=== PATIENT | female | born 1955 | race Caucasian/White ===

== ENCOUNTER 2017-10-01 06:11 | Emergency (ER) | payer BC ==
[~2017-10-01] VITALS: Ht 167.6 cm; Wt 104.8 kg
[~2017-10-01 06:11] MED LIST: AMOXICILLIN875 MG PO; BENADRYL ALLERG25 MG PO; CELEXA10 MG; CELEXA10 MG PO; CHERATUSSIN AC118 ML PO; CIPRO500 MG PO; LEVOTHROID137 MCG PO; LORTAB 10-5001 EACH PO; NORVASC5 MG PO
--- NOTE | 2017-10-01 08:09 | Diagnostic Imaging Report ---
PROCEDURE:X-RAY RIGHT KNEE, THREE OR MORE VIEWS COMPARISON:None. INDICATIONS:RIGHT KNEE PAIN S/P FALL FINDINGS: The bones are well-mineralized. There are no fractures, subluxations, lytic or blastic lesions. Mild degenerative spurring of the superior aspect of the patella and the medial distal femur. Calcific body noted posteriorly likely a fabella or synovial osteochondroma. There is no evidence of a joint effusion. CONCLUSION: No acute bony abnormality. Joshua Quesada D.O. Dictated by: Joshua Quesada D.O. on 10/01/2017 at 8:09 Electronically approved by: Joshua Quesada D.O. on 10/01/2017 at 8:09
[2017-10-01] MEDS ORDERED: HYDROCODONE/APAP 10MG-325MG TAB PO ONE (08:30)
[2017-10-01 09:09] VITALS: BP 126/107
== END 2017-10-01 09:30 | disposition home or self-care (01) ==
LOC: ER 06:11
DX: S83.411A Sprain of medial collateral ligament of right knee, initial encounter (principal); Y93.89 Activity, other specified; Y92.002 Bathroom of unspecified non-institutional (private) residence as the place of occurrence of the external cause; I10 Essential (primary) hypertension; E03.9 Hypothyroidism, unspecified
CPT/HCPCS: 99283

== ENCOUNTER 2018-10-26 19:24 | Emergency (ER) | payer BC ==
[~2018-10-26] VITALS: Ht 167.6 cm; Wt 96.6 kg
--- OUTSIDE RECORDS SUMMARY | 2018-10-26 19:28 | XMS REPORT ---
Author Author [facility] Address Unknown Phone Unavailable Care Team Providers Care Non Destructive Evaluation Technician Name Role Phone Jaspreet OLIVARES Unavailable Unavailable Problems This patient has no known problems. Allergies, Adverse Reactions, Alerts This patient has no known allergies or adverse reactions. Medications This patient has no known medications. Results Test Description Test Time Test Comments Text Results Atomic Results Result Comments KNEE RIGHT THREE VIEWS [place] [id number] [place] [id number] Patient Name: DALE LAWRENCE MR #: [id number] : 1955 Age/Sex: 62/F Req #: [id number] Adm Physician: Ordered by: WESLEY OLIVARES MD Report #: [id number] Location: ER Room/Bed: Procedure: [id number] DX/KNEE RIGHT THREE VIEWS Exam Date: 10/01/17 Exam Time: 0649 REPORT STATUS: Signed PROCEDURE: X-RAY RIGHT KNEE, THREE OR MORE VIEWS COMPARISON: None. INDICATIONS: RIGHT KNEE PAIN S/P FALL FINDINGS: The bones are well-mineralized. There are no fractures, subluxations, lytic or blastic lesions. Mild degenerative spurring of the superior aspect of the patella and the medial distal femur. Calcific body noted posteriorly likely a fabella or synovial osteochondroma. There is no evidence of a joint effusion. CONCLUSION: No acute bony abnormality. Angie Hall D.O. Dictated by: Angie Hall D.O. on 10/01/2017 at 8:09 Electronically approved by: Angie Hall D.O. on 10/01/2017 at 8:09 Dictated By: ANGIE HALL DO 8 Transcribed By: MARIA LUISA on 10/01/17808 COPY TO: WESLEY OLIVARES MD
[2018-10-26 21:09] LABS: BASOPHILS % 0.1 % (0.0-1.0); HEMATOCRIT 32.1 % (34.2-44.1); HEMOGLOBIN 11.1 g/dL (12.0-16.0); LYMPHOCYTES # (AUTO) 2.7 (1.0-3.2); LYMPHOCYTES % 36.5 % (18.0-39.1); MEAN CORPUSCULAR HEMOGLOBIN 29.2 pg (28-32); MEAN CORPUSCULAR HGB CONC 34.6 g/dL (31-35); MEAN CORPUSCULAR VOLUME 84.5 fL (81-99); MONOCYTES # (AUTO) 0.6 (0.2-0.8); MONOCYTES % 8.4 % (4.4-11.3); NEUTROPHILS % 54.7 % (38.7-80.0); PLATELET COUNT 220 x10e3/uL (140-360); RED CELL DISTRIBUTION WIDTH 12.3 % (11.7-14.4)
[2018-10-26 21:29] LABS: ALBUMIN/GLOBULIN RATIO 1.1 (0.8-2.0); ANION GAP 16.5 mmol/L (8-16); CALCIUM 9.7 mg/dL (8.4-10.2); CREATININE, SERUM 2.26 mg/dL (0.57-1.11); POTASSIUM 4.5 mmol/L (3.5-5.1)
[2018-10-26 21:39] LABS: CREATINE KINASE MB 4.3 ng/mL (0-5.0)
--- NOTE | 2018-10-26 21:40 | Diagnostic Imaging Report ---
EXAMINATION: CHEST 2 VIEWS INDICATION: SOB COMPARISON: None FINDINGS: PA and lateral views TUBES and LINES: None. LUNGS: Lungs are well inflated. Lungs are clear. There is no evidence of pneumonia or pulmonary edema. PLEURA: No pleural effusion or pneumothorax. HEART AND MEDIASTINUM: The cardiomediastinal silhouette is unremarkable. BONES AND SOFT TISSUES: There are degenerative changes in the thoracic spine. Surgical clips project over the lower midline neck. UPPER ABDOMEN: No free air under the diaphragm. There are cholecystectomy clips. IMPRESSION: No acute thoracic abnormality. Signed by: DR. Riley Rooney MD on 10/26/2018 9:37 PM
[2018-10-27 06:11] VITALS: BP 115/70
== END 2018-10-27 00:48 | disposition home or self-care (01) ==
LOC: ER 19:24
DX: R06.00 Dyspnea, unspecified (principal); R05 Cough; N17.9 Acute kidney failure, unspecified
CPT/HCPCS: 36415; 71046; 80053; 82550; 82553; 83880; 84484; 85025; 85379; 93005; 99283

== ENCOUNTER → 2018-10-26 | Outpatient (CLI) | payer BC ==
[2018-10-26 18:37] LABS: CREATININE, SERUM 2.43 mg/dL (0.57-1.11)
== END ==
LOC: CT 17:38
PROVIDERS: ATTEND Family Medicine
DX: R06.09 Other forms of dyspnea (principal)
CPT/HCPCS: 36415; 82565; 84520

== ENCOUNTER → 2019-02-01 | Outpatient (CLI) | payer BC ==
[~2019-02-01] MED LIST changes: +GADOBENATE DIMEGLUMINE 1 ML IV ONE
[2019-02-01 13:46] LABS: CREATININE, SERUM 1.14 mg/dL (0.57-1.11)
--- NOTE | 2019-02-03 15:11 | Diagnostic Imaging Report ---
EXAMINATION: MRI of the lumbar spine without contrast HISTORY: Severe low back pain, status post fall. Prior lumbar spine surgery COMPARISON: Lumbar spine MRI 12/27/2016 TECHNIQUE: Sagittal T1, T2, STIR; axial T2 and proton density. FINDINGS: It is assumed that there are 5 lumbar vertebrae. Curvature/Alignment: Normal lordosis. Vertebrae: No evidence of recent fracture, infection, or neoplasm. Conus: Normal, terminating at L1. No abnormal enhancement. Cauda equina: Unremarkable. No abnormal enhancement. Lower thoracic: Unremarkable. Paraspinal soft tissues: Multiple T2 hyperintense, nonenhancing, probable cyst in both kidneys Degenerative changes: . L1-L2: Degenerative decrease disc height and T2 signal intensity, symmetric disc bulge, mild facet arthrosis. No spinal canal or foraminal stenosis. L2-L3: Minimal disc bulge and facet arthrosis without stenoses. L3-L4: Minimal disc bulge and mild facet arthrosis. No stenoses L4-L5: Decreased T2 signal intensity, asymmetric to left disc bulge, facet arthrosis. Left-sided laminectomy, enhancing scar tissue within the left lateral recess encasing the traversing left L5 nerve root. No discrete disc herniation. L5-S1: Mild decreased disc height and T2 signal intensity, mild diffuse disc bulge and bilateral facet arthrosis. Minimal anterolisthesis. No spinal canal or foraminal stenosis. Sacroiliac joints: Unremarkable. IMPRESSION: 1. No acute posttraumatic lumbar spine abnormalities. 2. Small amount of enhancing scar tissue within the left lateral recess at L4-L5, no disc herniation. 3. Persistent degenerative changes mainly at L1-L2 and L5-S1 without associated spinal canal or neural foraminal stenosis. 4. Persistent minimal degenerative anterolisthesis at L5-S1. Signed by: Dr. Monika Robles M.D. on 02/03/2019 3:08 PM
== END ==
LOC: MRI 13:03
PROVIDERS: ATTEND Family Medicine
DX: M54.5 Low back pain (principal)
CPT/HCPCS: 36415; 72158; 82565; 84520; A9577

== ENCOUNTER 2020-10-30 16:47 | Emergency (ER) | payer SELFPAY ==
[~2020-10-30] VITALS: Ht 167.6 cm; Wt 102.1 kg
[~2020-10-30 16:47] MED LIST changes: -GADOBENATE DIMEGLUMINE 1 ML IV ONE
[2020-10-30] MEDS ORDERED: HYDROCODONE/APAP 5MG-325MG TAB PO ONE (22:45)
[2020-10-30] MEDS ORDERED: HYDROCODON-ACE1 EAC9 PO (22:48)
== END 2020-10-30 23:35 | disposition home or self-care (01) ==
LOC: ER 19:21
DX: S13.4XXA Sprain of ligaments of cervical spine, initial encounter (principal); S33.5XXA Sprain of ligaments of lumbar spine, initial encounter; V43.52XA Car driver injured in collision with other type car in traffic accident, initial encounter; Y92.488 Other paved roadways as the place of occurrence of the external cause; E05.90 Thyrotoxicosis, unspecified without thyrotoxic crisis or storm
CPT/HCPCS: 70450; 72125; 72128; 72131; 99283

== ENCOUNTER 2020-12-03 14:17 | Emergency (ER) | payer BC ==
[~2020-12-03] VITALS: Ht 162.6 cm; Wt 81.6 kg
[~2020-12-03 14:17] MED LIST changes: +HYDROCODON-ACE1 EAC9 PO
== END 2020-12-03 15:20 | disposition home or self-care (01) ==
LOC: ER 15:00
DX: L03.032 Cellulitis of left toe (principal); R50.9 Fever, unspecified; E05.90 Thyrotoxicosis, unspecified without thyrotoxic crisis or storm; I12.0 Hypertensive chronic kidney disease with stage 5 chronic kidney disease or end stage renal disease; N18.6 End stage renal disease; Z99.2 Dependence on renal dialysis
CPT/HCPCS: 99282

== ENCOUNTER 2021-04-08 16:51 | Emergency (ER) | payer BC ==
[~2021-04-08] VITALS: Ht 162.6 cm; Wt 81.6 kg
[2021-04-08] MEDS ORDERED: BACTRIM DS TAB1 EACH PO (18:22)
[2021-04-08] MEDS ORDERED: CEPHALEXIN500 MG PO (18:22)
[2021-04-08] MEDS ORDERED: FLUCONAZOLE100 MG PO (18:22)
== END 2021-04-08 18:45 | disposition home or self-care (01) ==
LOC: ER 18:18
DX: B37.89 Other sites of candidiasis (principal); I10 Essential (primary) hypertension; F17.210 Nicotine dependence, cigarettes, uncomplicated; E05.90 Thyrotoxicosis, unspecified without thyrotoxic crisis or storm
CPT/HCPCS: 99283

== ENCOUNTER 2021-05-09 18:07 | Emergency (ER) | payer MEDICARE ==
[~2021-05-09] VITALS: Ht 162.6 cm; Wt 81.6 kg
[~2021-05-09 18:07] MED LIST changes: +BACTRIM DS TAB1 EACH PO; +CEPHALEXIN500 MG PO; +FLUCONAZOLE100 MG PO
[2021-05-09] MEDS ORDERED: KETOROLAC TROMETHAMINE 60 MG/2 ML VIAL IM ONE (19:30)
== END 2021-05-09 20:28 | disposition home or self-care (01) ==
LOC: ER 18:22
DX: R10.32 Left lower quadrant pain (principal); S39.011A Strain of muscle, fascia and tendon of abdomen, initial encounter; I10 Essential (primary) hypertension; E05.90 Thyrotoxicosis, unspecified without thyrotoxic crisis or storm
CPT/HCPCS: 93971; 99283; J1885

== ENCOUNTER → 2022-01-16 | Outpatient (CLI) | payer MEDICARE | LOC: US 14:40 | PROVIDERS: ATTEND Nurse Practitioner Adult Health | DX: N18.32 Chronic kidney disease, stage 3b (principal) | CPT/HCPCS: 76770 ==

== ENCOUNTER 2022-10-29 15:06 | Emergency (ER) | payer MEDICARE ==
[~2022-10-29] VITALS: Ht 162.6 cm; Wt 81.6 kg
[2022-10-29 16:06] LABS: BASOPHILS % 0.3 % (0.0-1.0); HEMATOCRIT 39.7 % (34.2-44.1); HEMOGLOBIN 13.6 g/dL (12.0-16.0); LYMPHOCYTES % 22.7 % (18.0-39.1); MEAN CORPUSCULAR HEMOGLOBIN 29.8 pg (28-32); MEAN CORPUSCULAR HGB CONC 34.3 g/dL (31-35); MEAN CORPUSCULAR VOLUME 86.9 fL (81-99); MONOCYTES # (AUTO) 0.7 (0.2-0.8); MONOCYTES % 7.8 % (4.4-11.3); NEUTROPHILS # (AUTO) 6.2 (2.1-6.9); NEUTROPHILS % 68.9 % (38.7-80.0); PLATELET COUNT 308 x10e3/uL (140-360); RED BLOOD COUNT 4.57 x10e6/uL (3.6-5.1); RED CELL DISTRIBUTION WIDTH 11.9 % (11.7-14.4)
[2022-10-29 16:16] LABS: INR 0.92; PROTHROMBIN TIME 12.9 seconds (11.9-14.5)
[2022-10-29 16:17] LABS: PARTIAL THROMBOPLASTIN TIME 36.2 seconds (23.8-35.5)
[2022-10-29 16:25] LABS: ALBUMIN 3.9 g/dL (3.5-5.0); ANION GAP 17.9 mmol/L (8-16); CALCIUM 9.4 mg/dL (8.4-10.2); CREATININE, SERUM 1.32 mg/dL (0.57-1.11); MAGNESIUM 1.8 MG/DL (1.3-2.1); POTASSIUM 3.9 mmol/L (3.5-5.1)
[2022-10-29 16:31] LABS: CREATINE KINASE MB 2.3 ng/mL (0-5.0)
[2022-10-29] MEDS ORDERED: SODIUM CHLORIDE 0.9% 1000ML 1,000 ML IV STA (17:05)
[2022-10-29] MEDS ORDERED: IOPAMIDOL 370 MG/ML 100 ML INFUS..BTL INJ ONE (17:17)
[2022-10-29 19:10] VITALS: BP 113/77
== END 2022-10-29 19:55 | disposition home or self-care (01) ==
LOC: ER 15:22
DX: R06.02 Shortness of breath (principal); R07.89 Other chest pain; N18.9 Chronic kidney disease, unspecified; R91.8 Other nonspecific abnormal finding of lung field; Z20.822 Contact with and (suspected) exposure to COVID-19
CPT/HCPCS: 36415; 71045; 71260; 80053; 82550; 82553; 83735; 83880; 84443; 84484; 85025; 85379; 85610; 85730; 93005; 99284; J7030; Q9967; U0002

== ENCOUNTER 2022-12-28 21:44 | Emergency (ER) | payer MEDICARE ==
[~2022-12-28] VITALS: Ht 162.6 cm; Wt 97.1 kg
[2022-12-28] MEDS ORDERED: CEFTRIAXONE 1 GM VIAL IV SCH (22:00)
[2022-12-28] MEDS ORDERED: ONDANSETRON HCL INJ 2MG/ML 2ML 2 MG/ML VIAL IV STA (22:06)
[2022-12-28] MEDS ORDERED: CEFTRIAXONE 1 GM VIAL ONE (22:09)
[2022-12-28] MEDS ORDERED: SODIUM CHLORIDE 0.9% 1000ML 1,000 ML ONE (22:11)
[2022-12-28] MEDS ORDERED: ONDANSETRON HCL INJ 2MG/ML 2ML 2 MG/ML VIAL ONE (22:11)
[2022-12-28] MEDS ORDERED: SODIUM CHLORIDE 0.9% 500ML 500 ML ONE ×2 (22:12→23:16)
[2022-12-28 22:14] LABS: BASOPHILS # (AUTO) 0.1 (0.0-0.1); BASOPHILS % 0.4 % (0.0-1.0); HEMATOCRIT 42.3 % (34.2-44.1); HEMOGLOBIN 14.7 g/dL (12.0-16.0); LYMPHOCYTES # (AUTO) 2.7 (1.0-3.2); LYMPHOCYTES % 16.9 % (18.0-39.1); MEAN CORPUSCULAR HEMOGLOBIN 29.8 pg (28-32); MEAN CORPUSCULAR HGB CONC 34.8 g/dL (31-35); MEAN CORPUSCULAR VOLUME 85.6 fL (81-99); MONOCYTES # (AUTO) 1.3 (0.2-0.8); MONOCYTES % 8.2 % (4.4-11.3); NEUTROPHILS # (AUTO) 11.6 (2.1-6.9); NEUTROPHILS % 73.8 % (38.7-80.0); PLATELET COUNT 361 x10e3/uL (140-360); RED BLOOD COUNT 4.94 x10e6/uL (3.6-5.1); RED CELL DISTRIBUTION WIDTH 12.3 % (11.7-14.4)
[2022-12-28] MEDS ORDERED: SODIUM CHLORIDE 0.9% 500ML 500 ML IV ONE (22:15)
[2022-12-28 22:20] LABS: INR 0.94; PARTIAL THROMBOPLASTIN TIME 34.2 seconds (23.8-35.5); PROTHROMBIN TIME 13.1 seconds (11.9-14.5)
[2022-12-28 22:29] LABS: ALBUMIN 4.6 g/dL (3.5-5.0); ALBUMIN/GLOBULIN RATIO 1.1 (0.8-2.0); ANION GAP 22.3 mmol/L (8-16); CALCIUM 10.3 mg/dL (8.4-10.2); CREATININE, SERUM 2.02 mg/dL (0.57-1.11); POTASSIUM 4.3 mmol/L (3.5-5.1)
[2022-12-28] MEDS ORDERED: ASPIRIN 81 MG CHEW TAB PO ONE (22:30)
[2022-12-28] MEDS ORDERED: SODIUM CHLORIDE 0.9% 1000ML 1,000 ML IV ONE ×3 (22:45→23:30)
[2022-12-28] MEDS ORDERED: SODIUM CHLORIDE 0.9% IV SCH (23:00)
[2022-12-28] MEDS ORDERED: SODIUM CHLORIDE 0.9% IV ONE ×2 (23:15→23:30)
[2022-12-29 01:33] LABS: CLARITY,URINE SL CLOUDY (CLEAR); COLOR,URINE YELLOW (YELLOW); KETONES,URINE TRACE (NEGATIVE); LEUKOCYTE ESTERASE ,URINE SMALL (NEGATIVE); NITRITE,URINE NEGATIVE (NEGATIVE); PROTEIN,URINE DIPSTICK 1+ (NEGATIVE); URINE UROBILINOGEN 0.2 mg/dL (0.2 - 1)
[2022-12-29 01:40] LABS: BACTERIA,URINE FEW /HPF; EPITHELIAL CELLS,URINE FEW /LPF; MUCUS,URINE MODERATE (RARE); RBC,URINE 0-5 /HPF (0-5)
[2022-12-29 03:19] VITALS: BP 146/92; PULSE 82; RESP 13; TEMP 98.4; O2SAT 99
== END 2022-12-29 03:33 | disposition other institution (70) ==
LOC: ER 21:50
DX: I20.0 Unstable angina (principal); E87.20 Acidosis, unspecified; N17.9 Acute kidney failure, unspecified; Z20.822 Contact with and (suspected) exposure to COVID-19; R94.31 Abnormal electrocardiogram [ECG] [EKG]
CPT/HCPCS: 0223U; 36415; 71046; 80053; 81001; 83605; 83690; 83880; 84484; 85025; 85610; 85730; 87040; 87086; 87186; 93005; 99284; J0696; J2405; J7030; J7040

== ENCOUNTER 2023-01-13 14:21 | Emergency (ER) | payer OTHER, MEDICARE ==
[~2023-01-13] VITALS: Ht 167.6 cm; Wt 97.1 kg
[~2023-01-13 14:21] MED LIST changes: +MEDROL4 M2 PO
[2023-01-13 14:24] VITALS: O2SAT 100
[2023-01-13] MEDS ORDERED: ACETAMINOPHEN 325 MG TAB PO ONE (15:00)
[2023-01-13] MEDS ORDERED: METHOCARBAMOL 500 MG TAB PO ONE (15:00)
== END 2023-01-13 16:48 | disposition home or self-care (01) ==
LOC: ER 14:44
DX: S06.0X1A Concussion with loss of consciousness of 30 minutes or less, initial encounter (principal); S00.01XA Abrasion of scalp, initial encounter; I11.0 Hypertensive heart disease with heart failure; I50.9 Heart failure, unspecified; E89.0 Postprocedural hypothyroidism; Z79.899 Other long term (current) drug therapy; W01.198A Fall on same level from slipping, tripping and stumbling with subsequent striking against other object, initial encounter; Y92.009 Unspecified place in unspecified non-institutional (private) residence as the place of occurrence of the external cause
CPT/HCPCS: 70450; 72125; 99283

== ENCOUNTER 2024-06-06 15:01 | Emergency (ER) | payer MEDICARE ==
[~2024-06-06] VITALS: Ht 167.6 cm; Wt 95.3 kg
[2024-06-06 17:11] LABS: BASOPHILS % 0.1 % (0.0-1.0); HEMATOCRIT 44.5 % (34.2-44.1); HEMOGLOBIN 15.6 g/dL (12.0-16.0); LYMPHOCYTES # (AUTO) 2.2 (1.0-3.2); LYMPHOCYTES % 21.3 % (18.0-39.1); MEAN CORPUSCULAR HEMOGLOBIN 31.1 pg (28-32); MEAN CORPUSCULAR HGB CONC 35.1 g/dL (31-35); MEAN CORPUSCULAR VOLUME 88.6 fL (81-99); MONOCYTES # (AUTO) 0.9 (0.2-0.8); NEUTROPHILS % 69.1 % (38.7-80.0); PLATELET COUNT 337 x10e3/uL (140-360); RED BLOOD COUNT 5.02 x10e6/uL (3.6-5.1); RED CELL DISTRIBUTION WIDTH 12.7 % (11.7-14.4); WHITE BLOOD COUNT 10.19 x10e3/uL (4.8-10.8)
[2024-06-06] MEDS ORDERED: SODIUM CHLORIDE FLUSH 10 ML SYR IV PRN (17:15)
[2024-06-06 17:22] LABS: ALBUMIN 4.3 g/dL (3.5-5.0); ANION GAP 19.4 mmol/L (8-16); BILIRUBIN,TOTAL 0.9 mg/dL (0.2-1.2); CALCIUM 10.6 mg/dL (8.4-10.2); CREATININE, SERUM 1.31 mg/dL (0.57-1.11); POTASSIUM 4.4 mmol/L (3.5-5.1); TOTAL PROTEIN 8.4 g/dL (6.5-8.1)
[2024-06-06] MEDS: ONDANSETRON HCL INJ 2MG/ML 2ML 2 MG/ML VIAL IV STA (18:03)
[2024-06-06] MEDS: SODIUM CHLORIDE 0.9% 1000ML 1,000 ML IV STA (18:03)
[2024-06-06] MEDS: ACETAMINOPHEN 325 MG TAB PO ONE (20:21)
[2024-06-06] MEDS ORDERED: ULTRAM 50MG50 MG PO (20:47)
[2024-06-06 20:55] LABS: BILIRUBIN,URINE SMALL (NEGATIVE); CLARITY,URINE CLEAR (CLEAR); COLOR,URINE YELLOW (YELLOW); GLUCOSE, URINE NEGATIVE (NEGATIVE); KETONES,URINE NEGATIVE (NEGATIVE); LEUKOCYTE ESTERASE ,URINE NEGATIVE (NEGATIVE); NITRITE,URINE NEGATIVE (NEGATIVE); PH,URINE 5.5 (5 - 7); PROTEIN,URINE DIPSTICK >=300 (NEGATIVE); URINE UROBILINOGEN 0.2 mg/dL (0.2 - 1)
[2024-06-06 21:00] VITALS: PULSE 59; RESP 16; TEMP 98.2; O2SAT 97
[2024-06-06] MEDS ORDERED: IOPAMIDOL 370 MG/ML 100 ML INFUS..BTL INJ ONE (21:24)
[2024-06-06 21:54] LABS: BACTERIA,URINE FEW /HPF; EPITHELIAL CELLS,URINE RARE /LPF; RBC,URINE 0-5 /HPF (0-5); WBC,URINE (MAN) 0-5 /HPF (0-5)
== END 2024-06-06 21:00 | disposition home or self-care (01) ==
LOC: ER 17:09
DX: R11.2 Nausea with vomiting, unspecified (principal); K52.9 Noninfective gastroenteritis and colitis, unspecified; R10.84 Generalized abdominal pain; R51.9 Headache, unspecified; I10 Essential (primary) hypertension; I50.9 Heart failure, unspecified; E05.00 Thyrotoxicosis with diffuse goiter without thyrotoxic crisis or storm; F41.9 Anxiety disorder, unspecified
CPT/HCPCS: 36415; 74177; 80053; 81001; 83690; 85025; 99284; J2405; J7030; Q9967

== ENCOUNTER 2024-09-19 05:06 | Emergency (ER) | payer MEDICARE ==
[~2024-09-19] VITALS: Ht 167.6 cm; Wt 95.3 kg
[~2024-09-19 05:06] MED LIST changes: +ULTRAM 50MG50 MG PO
[2024-09-19] MEDS ORDERED: KETOROLAC TROMETHAMINE 60 MG/2 ML VIAL IM ONE (05:30)
[2024-09-19] MEDS ORDERED: KETOROLAC TROMETHAMINE 30 MG/ML VIAL ONE (05:33)
[2024-09-19] MEDS: KETOROLAC TROMETHAMINE 30 MG/ML VIAL IV STA (05:40)
[2024-09-19] MEDS: CYCLOBENZAPRINE HCL 10 MG TAB PO ONE (05:40)
[2024-09-19 06:00] VITALS: PULSE 89; RESP 19; TEMP 98.2
[2024-09-19 06:12] VITALS: BP 104/63; PULSE 89; RESP 19; TEMP 98.2; O2SAT 98
[2024-09-19] MEDS ORDERED: CYCLOBENZAPRINE10 MG PO (06:16)
== END 2024-09-19 06:15 | disposition home or self-care (01) ==
LOC: ER 05:10
DX: M54.50 Low back pain, unspecified (principal); G89.29 Other chronic pain; I10 Essential (primary) hypertension; E03.9 Hypothyroidism, unspecified; F41.9 Anxiety disorder, unspecified; E05.00 Thyrotoxicosis with diffuse goiter without thyrotoxic crisis or storm
CPT/HCPCS: 99283; J1885

== ENCOUNTER 2025-04-18 09:30 | Emergency (ER) | payer MEDICARE ==
[~2025-04-18] VITALS: Ht 167.6 cm; Wt 95.3 kg
[~2025-04-18 09:30] MED LIST changes: +CYCLOBENZAPRINE10 MG PO
[2025-04-18 09:51] VITALS: TEMP 97.5
[2025-04-18] MEDS: SODIUM CHLORIDE 0.9% 1000ML 1,000 ML IV STA (10:41)
[2025-04-18] MEDS: DIAZEPAM INJ 5 MG/ML 2 ML IV STA (10:43)
[2025-04-18 11:24] LABS: BASOPHILS % 0.3 % (0.0-1.0); EOSINOPHILS % 0.0 % (0.0-6.0); LYMPHOCYTES % 26.6 % (18.0-39.1); MONOCYTES % 7.6 % (4.4-11.3); NEUTROPHILS % 65.1 % (38.7-80.0); RED CELL DISTRIBUTION WIDTH 12.2 % (11.7-14.4)
[2025-04-18 11:56] LABS: AMPHETAMINES SCREEN,URINE NEGATIVE (NEGATIVE); OPIATES SCREEN,URINE POSITIVE (NEGATIVE)
[2025-04-18 11:57] LABS: CANNABINOIDS SCREEN,URINE POSITIVE (NEGATIVE); COCAINE SCREEN,URINE NEGATIVE (NEGATIVE); METHADONE SCREEN, URINE NEGATIVE (NEGATIVE)
[2025-04-18 12:05] LABS: LEUKOCYTE ESTERASE ,URINE NEGATIVE (NEGATIVE); PROTEIN,URINE DIPSTICK NEGATIVE (NEGATIVE); URINE UROBILINOGEN 0.2 mg/dL (0.2 - 1)
[2025-04-18 12:06] LABS: WBC,URINE (MAN) 0-5 /HPF (0-5)
[2025-04-18 12:17] LABS: EST GLOMERULAR FILTRATION RATE 43.0 ML/MIN (>=60)
[2025-04-18] MEDS ORDERED: IOPAMIDOL 370 MG/ML 100 ML INFUS..BTL INJ ONE (13:33)
[2025-04-18 14:00] VITALS: PULSE 72; RESP 18
[2025-04-18 15:00] VITALS: BP 139/94; PULSE 68; RESP 18; TEMP 97.8; O2SAT 97
[2025-04-18] MEDS ORDERED: ULTRAM 50MG50 MG PO (15:05)
[2025-04-18] MEDS: Morphine 4mg INJECTION 4 MG/ML INJ IV STA (15:24)
[2025-04-18] MEDS: ONDANSETRON HCL INJ 2MG/ML 2ML 2 MG/ML VIAL IV STA (15:24)
== END 2025-04-18 15:25 | disposition home or self-care (01) ==
LOC: ER 09:42
DX: R10.33 Periumbilical pain (principal); I10 Essential (primary) hypertension; E03.9 Hypothyroidism, unspecified; F41.9 Anxiety disorder, unspecified; M54.9 Dorsalgia, unspecified; G89.29 Other chronic pain; R94.31 Abnormal electrocardiogram [ECG] [EKG]
CPT/HCPCS: 36415; 74177; 80053; 80307; 80320; 81001; 82550; 83690; 84484; 85025; 93005; 99284; J2270; J2405; J3360; J7030; Q9967